=== PATIENT | female | born 1950 | race African-American/Black ===

== ENCOUNTER 2023-06-02 07:52 | Emergency (ER) | payer MEDICARE, OTHER ==
[~2023-06-02] VITALS: Ht 162.6 cm; Wt 79.0 kg
[~2023-06-02 07:52] MED LIST: AMLO10TA80 PO; CARV25TA47 PO; OLME40TA11 PO
[2023-06-02 08:04] VITALS: O2SAT 98
[2023-06-02] MEDS ORDERED: CLONIDINE 0.1MG TABLET PO ONE (08:45)
[2023-06-02 09:00] LABS: EOSINOPHILS % 2.1 % (0.0-5.0); HEMATOCRIT. 31.4 % (36.0-48.0); HEMOGLOBIN. 9.8 g/dL (12.0-16.0); LYMPHOCYTES % 9.5 % (20.0-50.0); MEAN CORPUSCULAR HEMOGLOBIN 29.1 pg (28.0-32.0); MEAN CORPUSCULAR HGB CONC 31.3 g/dL (31.0-37.0); MEAN CORPUSCULAR VOLUME 92.9 fL (81.0-99.0); MEAN PLATELET VOLUME 9.8 fl (7.4-10.4); MONOCYTES % 8.2 % (2.0-8.0); NEUTROPHILS % 78.2 % (40.0-76.0); PLATELET 240 x1000/uL (130-400); RED BLOOD CELL COUNT 3.38 mill/uL (4.2-5.4); RED CELL DISTRIBUTION WIDTH 16.6 % (11.6-14.6); WHITE BLOOD COUNT 7.6 x1000/uL (4.5-11.0)
[2023-06-02 09:17] LABS: ALANINE AMINOTRANSFERASE < 7 IU/L (10-49); ALBUMIN 4.5 g/dL (3.2-4.8); ASPARTATE AMINOTRANSFERASE 17 IU/L (<34); BILIRUBIN TOTAL 0.4 mg/dL (0.1-1.0); CALCIUM 9.4 mg/dL (8.7-10.4); CARBON DIOXIDE 26 mEq/L (21-32); CHLORIDE 101 mEq/L (98-107); CREATININE 3.4 mg/dL (0.6-1.0); GLUCOSE 102 mg/dL (70-105); POTASSIUM 4.5 mEq/L (3.5-5.1); PROTEIN TOTAL 8.7 g/dL (6.0-8.3); SODIUM 133 mEq/L (136-145); TROPONIN I HIGH SENSITIVITY 15 ng/L (3.0-34); UREA NITROGEN BLOOD 64 mg/dL (9-23)
[2023-06-02 10:28] VITALS: BP 184/83; PULSE 97; RESP 16; TEMP 98.2
== END 2023-06-02 10:40 | disposition home or self-care (01) ==
LOC: ER 07:52
DX: I10 Essential (primary) hypertension (principal); E11.9 Type 2 diabetes mellitus without complications; Z98.890 Other specified postprocedural states
CPT/HCPCS: 36415; 71045; 80053; 83880; 84484; 85025; 93005; 99285

== ENCOUNTER 2023-06-13 10:38 | Emergency (ER) | payer MEDICARE, OTHER ==
[~2023-06-13] VITALS: Ht 157.5 cm; Wt 70.0 kg
[2023-06-13 11:24] VITALS: TEMP 98.2
[2023-06-13 13:14] LABS: BASOPHILS % 0.9 % (0.0-2.0); EOSINOPHILS % 1.3 % (0.0-5.0); HEMOGLOBIN. 11.4 g/dL (12.0-16.0); LYMPHOCYTES % 13.7 % (20.0-50.0); MEAN CORPUSCULAR HEMOGLOBIN 29.6 pg (28.0-32.0); MEAN CORPUSCULAR HGB CONC 32.6 g/dL (31.0-37.0); MEAN PLATELET VOLUME 9.2 fl (7.4-10.4); MONOCYTES % 6.9 % (2.0-8.0); NEUTROPHILS % 77.2 % (40.0-76.0); PLATELET 214 x1000/uL (130-400); RED BLOOD CELL COUNT 3.85 mill/uL (4.2-5.4); RED CELL DISTRIBUTION WIDTH 16.3 % (11.6-14.6); WHITE BLOOD COUNT 7.2 x1000/uL (4.5-11.0)
[2023-06-13 13:29] LABS: ALANINE AMINOTRANSFERASE < 7 IU/L (10-49); ALBUMIN 4.4 g/dL (3.2-4.8); ASPARTATE AMINOTRANSFERASE 17 IU/L (<34); BILIRUBIN TOTAL 0.5 mg/dL (0.1-1.0); CALCIUM 9.5 mg/dL (8.7-10.4); CARBON DIOXIDE 26 mEq/L (21-32); CHLORIDE 101 mEq/L (98-107); CREATININE 3.2 mg/dL (0.6-1.0); GLUCOSE 95 mg/dL (70-105); POTASSIUM 5.7 mEq/L (3.5-5.1); PROTEIN TOTAL 8.7 g/dL (6.0-8.3); SODIUM 132 mEq/L (136-145); UREA NITROGEN BLOOD 52 mg/dL (9-23)
[2023-06-13] MEDS ORDERED: FUROSEMIDE 20MG TABLET PO ONE (13:45)
[2023-06-13] MEDS ORDERED: INSULIN REGULAR (HUMULIN R) 300UNITS/3ML VIAL IV ONE (13:45)
[2023-06-13] MEDS ORDERED: SODIUM BICARBONATE 8.4% 1 MEQ/ML 50ML SYR IV ONE (13:45)
[2023-06-13] MEDS ORDERED: DEXTROSE 50% WATER 50ML SYRINGE IV ONE ×2 (13:45→20:15)
[2023-06-13] MEDS ORDERED: CALCIUM GLUCONATE 1,000 MG in DEXT 5% WATER 100 ML IV ONE (13:45)
[2023-06-13] MEDS ORDERED: ALBUTEROL (0.083%) 2.5MG/3ML NEB HHN SCH (14:00)
[2023-06-13] MEDS: FUROSEMIDE 40MG/4ML VIAL IVP ONE (17:53)
[2023-06-13] MEDS: HYDRALAZINE 20MG/ML VIAL IV ONE (17:53)
[2023-06-13] MEDS: DEXTROSE 50% WATER 50ML SYRINGE IV NR (17:55)
[2023-06-13] MEDS: SODIUM BICARBONATE 8.4% 1 MEQ/ML 50ML SYR IV NR (17:58)
[2023-06-13] MEDS: INSULIN REGULAR (HUMULIN R) 300UNITS/3ML VIAL IV NR (18:03)
[2023-06-13] MEDS: ALBUTEROL (0.083%) 2.5MG/3ML NEB HHN SCH (18:24)
[2023-06-13 18:27] VITALS: PULSE 81; RESP 20; O2SAT 99
[2023-06-13] MEDS: CALCIUM GLUCONATE 1GM PREMIX 50 ML IV NR (18:43)
[2023-06-13 19:55] LABS: CREATININE 3.1 mg/dL (0.6-1.0)
[2023-06-13 20:36] VITALS: BP 113/53; PULSE 90; RESP 17
== END 2023-06-13 23:07 | disposition home or self-care (01) ==
LOC: ER 11:43
DX: E87.5 Hyperkalemia (principal); I12.0 Hypertensive chronic kidney disease with stage 5 chronic kidney disease or end stage renal disease; E11.22 Type 2 diabetes mellitus with diabetic chronic kidney disease; N18.6 End stage renal disease
CPT/HCPCS: 80053; 80048; 82962; 85025; 36415; 94640; 93005; 96374; 96375; 99284; J0610; J1940; J0360; J1815; J3490; J7060

== ENCOUNTER 2023-06-17 04:27 | Emergency (ER) | payer MEDICARE, OTHER ==
[~2023-06-17] VITALS: Ht 165.1 cm; Wt 95.0 kg
[2023-06-17 05:16] VITALS: O2SAT 100
[2023-06-17] MEDS: SODIUM CHLORIDE 0.9% 1,000 ML IV ONE (09:07)
[2023-06-17] MEDS: KETOROLAC 30MG/ML VIAL IV STA (09:07)
[2023-06-17] MEDS: METOCLOPRAMIDE HCL 10MG/2ML VIAL IV ONE (09:07)
[2023-06-17] MEDS ORDERED: IBUP-2028 PO (10:08)
[2023-06-17 10:35] VITALS: BP 155/79; PULSE 78; RESP 19; TEMP 98
== END 2023-06-17 11:07 | disposition home or self-care (01) ==
LOC: ER 04:27
DX: R51.9 Headache, unspecified (principal); I12.0 Hypertensive chronic kidney disease with stage 5 chronic kidney disease or end stage renal disease; N18.9 Chronic kidney disease, unspecified; E11.9 Type 2 diabetes mellitus without complications; Z98.890 Other specified postprocedural states
CPT/HCPCS: 99284; 96374; 96361; 96375; J1885; J2765; J7030